=== PATIENT | female | born 1985 | race African-American/Black ===

== ENCOUNTER 2020-02-05 10:59 | Inpatient (IN) ==
[2020-02-05 11:35] LABS: Bacteria,Urine Occasional /HPF (Few); Bilirubin,Urine Negative (Negative); Blood, Urine Negative (Negative); Glucose,Urine (UA) Negative (Negative); Ketones,Urine Negative (Negative); Mucus,Urine Occasional /LPF (Occasional); Nitrite,Urine Negative (Negative); Protein,Urine Negative; RBC,Urine <1 /HPF (0-4); Squamous Epithelial Cell,Urine Occasional /HPF (0-10); Urine Appearance Slightly Hazy (Clear); Urine Color Yellow (Yellow); Urine Specific Gravity 1.012 (1.001-1.035); Urine Urobilinogen < 2.0 EU/DL (0.2-1.0); WBC,Urine <1 /HPF (0-6)
[2020-02-05] MEDS ORDERED: ONDANSETRON 4 MG/2 ML VIAL IV PRN (14:43)
[2020-02-05] MEDS ORDERED: miSOPROStoL 200 MCG TABLET VAG PRN (14:43)
[2020-02-05] MEDS ORDERED: LIDOCAINE 1% 50 ML VIAL MISC INJ ONE (14:43)
[2020-02-05] MEDS ORDERED: LACTATED RINGERS 250 ML IV ONE (14:43)
[2020-02-05 15:06] LABS: Basophils % 0.3 % (0.0-0.8); Eosinophils % 0.3 % (0.00-10.9); Hematocrit 37.1 VOL% (35.7-47.0); Immature Granulocytes % 2.2 %; Immature Granulocytes Absolute 0.21 #; Lymphocytes # 2.1 10*3/uL (1.4-4.0); Lymphocytes % 21.6 % (21.3-54.2); Mean Corpuscular HGB Conc 32.3 GM/DL (32-36); Mean Corpuscular Volume 92.3 FL (87-102); Monocytes % 6.8 % (1.7-12.7); Neutrophils % 68.8 % (38.7-73.9); Platelet Count 214 T/CUMM (130-400); Red Blood Count 4.02 MC/CUMM (3.8-5.5); Red Cell Distribution Width 14.6 % (9.3-17.3); White Blood Count 9.6 T/CUMM (4-12)
[2020-02-05 15:30] LABS: Albumin 2.8 G/DL (3.4-5.0); Bilirubin,Total 0.4 MG/DL (0.2-1.0); Calcium 9.5 MG/DL (8.5-10.1); Osmolality,Calculated 269.8 MOS/KG (273-304); Total Protein 7.2 G/DL (6.4-8.3)
[2020-02-05] MEDS ORDERED: SIMETHICONE CHEW 125 MG TABLET PO PRN (19:19)
[2020-02-05] MEDS: BUTORPHANOL 2 MG/ML VIAL IV PRN (19:40)
[2020-02-06] MEDS: BUTORPHANOL 2 MG/ML VIAL IV PRN (00:41)
[2020-02-06] MEDS ORDERED: NALOXONE 0.4 MG/ML VIAL IV PRN (02:07)
[2020-02-06] MEDS ORDERED: CITRIC ACID/SODIUM CITRATE 30 ML UDCUP PO ONE (02:07)
[2020-02-06] MEDS ORDERED: PROMETHAZINE 25 MG/1 ML VIAL IM ONE (02:07)
[2020-02-06] MEDS ORDERED: hydrOXYzine HCL 25 MG/1 ML VIAL IM PRN (02:07)
[2020-02-06] MEDS ORDERED: ePHEDrine 50 MG/ML VIAL IV PRN (02:07)
[2020-02-06] MEDS ORDERED: diphenhydrAMINE 50 MG/1 ML VIAL IV PRN ×2 (02:07)
[2020-02-06] MEDS ORDERED: FAMOTIDINE 20 MG/2 ML VIAL IV ONE (02:07)
[2020-02-06] MEDS ORDERED: LACTATED RINGERS 1,000 ML IV ONE (02:07)
[2020-02-06] MEDS ORDERED: fentaNYL 2 MCG/ROPIV 0.2% EPID 100 ML EPIDURAL SCH (02:30)
[2020-02-06] MEDS ORDERED: LACTATED RINGERS 1,000 ML IV SCH (02:30)
[2020-02-06] MEDS: LACTATED RINGERS 1,000 ML IV SCH ×2 (03:31→05:14)
[2020-02-06] MEDS ORDERED: OXYTOCIN/LR 20 UNIT/1,000 ML BAG IV SCH (05:00)
[2020-02-06] MEDS ORDERED: TRANEXAMIC ACID 1,000 MG/10 ML VIAL ONE (08:22)
[2020-02-06] MEDS ORDERED: miSOPROStoL 200 MCG TABLET ONE (08:22)
[2020-02-06] MEDS ORDERED: CARBOPROST TROMETHAMINE 250 MCG/ML AMP IM ONE (08:23)
[2020-02-06] MEDS ORDERED: METHYLERGONOVINE 0.2 MG/1 ML AMP ONE (08:23)
[2020-02-06] MEDS ORDERED: OXYTOCIN/LR 20 UNIT/1,000 ML BAG IV ONE (08:23)
[2020-02-06] MEDS ORDERED: LIDOCAINE 1% 50 ML VIAL ONE (08:24)
[2020-02-06 08:46] LABS: Cord Venous Blood HCO3 24.4 MMOL/L; Cord Venous Blood PCO2 46.3 MMHG; Cord Venous Blood PO2 31.2 MMHG
[2020-02-06] MEDS: IBUPROFEN 800 MG TABLET PO PRN ×2 (14:10→23:14)
[2020-02-07 05:44] LABS: Basophils % 0.3 % (0.0-0.8); Eosinophils # 0.1 10*3/uL (0.0-0.87); Eosinophils % 1.2 % (0.00-10.9); Hematocrit 33.5 VOL% (35.7-47.0); Hemoglobin 10.8 GM/DL (12.0-16.0); Immature Granulocytes % 1.4 %; Immature Granulocytes Absolute 0.14 #; Lymphocytes # 2.7 10*3/uL (1.4-4.0); Lymphocytes % 27.3 % (21.3-54.2); Mean Corpuscular HGB Conc 32.2 GM/DL (32-36); Mean Corpuscular Volume 90.5 FL (87-102); Mean Platelet Volume 11.8 FL (9.6-12.0); Monocytes % 6.6 % (1.7-12.7); Neutrophils % 63.2 % (38.7-73.9); Platelet Count 199 T/CUMM (130-400); Red Cell Distribution Width 14.4 % (9.3-17.3); White Blood Count 9.8 T/CUMM (4-12)
[2020-02-07 06:52] LABS: Band Neutrophils 1 % (0-10); Eosinophils 1 % (0-10); Lymphocytes 22 % (20-55); Segmented Neutrophils 67 % (50-85); Total Cells Counted 100
[2020-02-07 06:54] LABS: Anisocytosis 1+; Macrocytosis 1+; Platelet Estimate Normal
[2020-02-07] MEDS: DOCUSATE SODIUM 100 MG CAPSULE PO SCH ×2 (08:53→20:19)
[2020-02-07] MEDS: IBUPROFEN 800 MG TABLET PO PRN ×2 (14:22→20:02)
[2020-02-08] MEDS: IBUPROFEN 800 MG TABLET PO PRN (06:21)
[2020-02-08 07:12] VITALS: BP 111/65
[2020-02-08] MEDS: DOCUSATE SODIUM 100 MG CAPSULE PO SCH (08:36)
== END 2020-02-08 12:50 | disposition home or self-care (01) | DRG 807 ==
LOC: N.LDOUT 10:59 → N.LD 11:05 → N.OB 02-06 11:15
PROVIDERS: ADMIT Obstetrics & Gynecology; ATTEND Obstetrics & Gynecology